=== PATIENT | male | born 1965 | race Caucasian/White ===

== ENCOUNTER 2021-02-12 11:17 | Emergency (ER) | payer BC ==
[~2021-02-12] VITALS: Ht 172.7 cm; Wt 79.4 kg
[2021-02-12 12:20] LABS: ABSOLUTE BASOPHILS 0.1 thou/uL (0.0-0.2); ABSOLUTE EOSINOPHILS 0.2 thou/uL (0.0-0.7); ABSOLUTE LYMPHOCYTES 2.3 thou/uL (0.8-5.3); ABSOLUTE MONOCYTES 0.7 thou/uL (0.0-1.2); ABSOLUTE NEUTROPHILS 3.9 thou/uL (1.6-8.1); BASOPHILS 1.2 %; EOSINOPHILS 2.9 %; HEMATOCRIT 44.9 % (42.0-52.0); HEMOGLOBIN 15.4 gm/dL (14.0-18.0); LYMPHOCYTES 32.1 %; MCHC 34.4 g/dL (28.0-37.0); MCV 90.2 fL (80.0-100.0); MONOCYTES 9.5 %; NUCLEATED RBCS 0 /100WBC; PLATELET COUNT* 355 thou/uL (150-400); POLYS 54.3 %; RBC 4.98 mil/uL (4.50-6.00); RDW-CV 12.8 % (10.5-14.5); WBC 7.1 thou/uL (4.0-11.0)
[2021-02-12 12:28] LABS: CALCIUM 8.9 mg/dL (8.5-10.1); CREATININE 0.9 mg/dL (0.6-1.3); POTASSIUM 3.6 mmol/L (3.5-5.1)
[2021-02-12 12:33] LABS: TOTAL BILIRUBIN 0.8 mg/dL (<0.1-1.0); TOTAL PROTEIN 7.3 g/dL (6.4-8.2)
[2021-02-12 15:15] VITALS: BP 152/89
[2021-02-12] MEDS ORDERED: FLEXERIL PO (15:15)
--- NOTE | 2021-02-12 17:07 | EKG ---
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 : 1965 Requested By: Venita Rodgers Order Number: [id number] MD: John Young Measurements Intervals [place] Rate: 65 P: 78 DC: 150 QRS: 53 QRSD: 141 T: 66 QT: 431 QTc: 449 Interpretive Statements Sinus rhythm Supraventricular bigeminy Probable left atrial enlargement Nonspecific intraventricular conduction delay early repolarization No previous ECG available for comparison Electronically Signed On 02-12-2021 17:06:44 CDT by John Young [email or web address] <ELECTRONICALLY SIGNED> By: John Young MD, [facility] 02/12/21 1706 1145 1145 John Young MD, [facility] /EPI
--- NOTE | 2021-02-12 17:08 | EKG ---
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 : 1965 Requested By: Jad Jean Order Number: [id number] MD: John Young Measurements Intervals [place] Rate: 59 P: 67 GA: 157 QRS: 62 QRSD: 115 T: 56 QT: 421 QTc: 417 Interpretive Statements Sinus rhythm Supraventricular bigeminy Nonspecific intraventricular conduction delay Borderline ST elevation, anterior leads Compared to ECG 02/12/2021 11:45:16 no change Electronically Signed On 02-12-2021 17:08:14 CDT by John Young [email or web address] <ELECTRONICALLY SIGNED> By: John Young MD, FACC 02/12/21 1708 1337 1337 John Young MD, [facility] /EPI
== END 2021-02-12 15:15 | disposition home or self-care (01) ==
LOC: M.ERS 11:17
PROVIDERS: Physician Assistant
DX: R07.89 Other chest pain (principal); F17.210 Nicotine dependence, cigarettes, uncomplicated